=== PATIENT | female | born 1995 | race African-American/Black ===

== ENCOUNTER 2019-08-11 16:48 | Emergency (ER) | payer OTHER ==
[~2019-08-11] VITALS: Ht 152.4 cm; Wt 64.0 kg
[2019-08-11 17:07] LABS: URINE BILIRUBIN NEGATIVE (Negative); URINE BLOOD NEGATIVE (Negative); URINE CLARITY CLEAR; URINE COLOR YELLOW; URINE GLUCOSE-RANDOM* NEGATIVE (Negative); URINE KETONES 1+ (Negative); URINE NITRITE-REFLEX NEGATIVE (Negative); URINE PROTEIN (DIPSTICK) NEGATIVE (Negative); URINE UROBILINOGEN 0.2 E.U./dl (0.2-1.0)
[2019-08-11 17:28] LABS: URINE LEUKOCYTES-REFLEX 1+ (Negative)
[2019-08-11 17:34] LABS: SQUAMOUS 4-10 Moderate /LPF (0-3)
[2019-08-11 17:35] LABS: BACTERIA-REFLEX None Seen /HPF (None Seen); CASTS None Seen /LPF (None Seen); CRYSTALS None Seen /LPF (None Seen); URINE RBC None Seen /HPF (0-2); URINE WBC-REFLEX 0-5 Rare /HPF (0-5)
[2019-08-11] MEDS ORDERED: FLAGYL500 M1 PO (18:30)
[2019-08-11 18:58] VITALS: BP 134/100
== END 2019-08-11 19:00 | disposition home or self-care (01) ==
LOC: ER 16:48
PROVIDERS: Physician Assistant
DX: N76.0 Acute vaginitis (principal); F17.210 Nicotine dependence, cigarettes, uncomplicated